=== PATIENT | female | born 1965 | race Caucasian/White ===

== ENCOUNTER 2016-11-12 18:35 | Emergency (ER) | payer MEDICARE, MEDICAID ==
[~2016-11-12] VITALS: Ht 154.9 cm; Wt 77.0 kg
[~2016-11-12 18:35] MED LIST: ACET-789 PO; ALBU8.5H6; ASPI1TAB22 PO; ATOR10TA PO; ATOR40TA2 PO; CALC500T55 PO; CYCL10TA45 PO; DIAZ5TAB PO; ESCI5TAB PO; HYDR-707 PO; IBUP200C PO; LACT1CAP69 PO; LOVA10TA PO; MELO-249 PO; MULT1CAP27 PO; NF-TORA10 PO; OMG1KC PO; OXCA600T3 PO; QUET150T PO; SERT100T PO; SERT100T8 PO; SRTR100T PO; TOPI100T38 PO; VARE1TAB21 PO
--- NOTE | 2016-11-12 19:00 | NUR ---
Report given to Nury FLOYD who will take over care of patient
[2016-11-12 19:12] VITALS: BP 125/65
[2016-11-12] MEDS ORDERED: PROMETHAZINE 25 MG/ML (PHENERGAN) 1 ML VIAL IM ONE (19:15)
[2016-11-12] MEDS ORDERED: KETOROLAC 60 MG/2 ML (TORADOL) VIAL IM ONE (19:15)
--- NOTE | 2016-11-12 19:27 | NUR ---
Pt requested to go home and sleep.
== END 2016-11-12 19:31 | disposition home or self-care (01) ==
LOC: ED 18:38
DX: G43.909 Migraine, unspecified, not intractable, without status migrainosus (principal)
CPT/HCPCS: 96372; 99282; J1885; J2550

== ENCOUNTER 2016-12-29 15:51 | Emergency (ER) | payer MEDICARE, MEDICAID ==
[~2016-12-29] VITALS: Ht 154.9 cm; Wt 73.0 kg
[2016-12-29] MEDS: HYDROmorphone 1 MG/ML (DILAUDID) SYRINGE IM ONE (17:01)
[2016-12-29] MEDS: PROMETHAZINE 25 MG/ML (PHENERGAN) 1 ML VIAL IM ONE (17:01)
[2016-12-29 17:08] VITALS: BP 112/73
== END 2016-12-29 17:08 | disposition home or self-care (01) ==
LOC: ED 15:53
DX: G43.409 Hemiplegic migraine, not intractable, without status migrainosus (principal)
CPT/HCPCS: 96372; 99282; J1170; J2550